=== PATIENT | female | born 1945 | race Caucasian/White ===

== ENCOUNTER 2018-09-01 11:23 | Inpatient (IN) | payer MEDICARE, OTHER ==
[2018-08-31] MEDS: SOD CHLORIDE 0.9% 100 ML, TRANEXAMIC ACID 3,000 MG IRR (06:30)
[2018-09-01] MEDS: GABAPENTIN 300 MG CAP PO ×3 (07:30→20:14)
[2018-09-01] MEDS: SOD CHLORIDE 0.9% 100 ML, TRANEXAMIC ACID 3,000 MG IRR (07:30)
[2018-09-01] MEDS: DEXAMETHASONE 1 MG TAB PO ×2 (07:30→13:21)
[~2018-09-01 11:23] MED LIST: BUPIVACAINE 0.5% (SDV) 30 ML, morphine SULFATE (PF) 8 MG, EPINEPHrine 0.3 MG, KETOROLAC... IRR; CEFAZOLIN 1 GM INJ; DESFLURANE 15 MIN; ROCURONIUM 50 MG INJ
[2018-09-01] MEDS ORDERED: FENTAnyl 50 MCG/ML VIAL (12:47)
[2018-09-01] MEDS ORDERED: PROPOFOL 20 ML (12:47)
[2018-09-01] MEDS ORDERED: MIDAZOLAM 1 MG/ML 2 ML INJ (12:47)
[2018-09-01] MEDS ORDERED: LABETALOL HCL 20MG INJ IV (13:00)
[2018-09-01] MEDS ORDERED: ONDANSETRON 4 MG INJ IV ×2 (13:00→15:30)
[2018-09-01] MEDS ORDERED: MEPERIDINE 25 MG INJ IV (13:00)
[2018-09-01] MEDS ORDERED: hydrALAzine 20 MG INJ IV (13:00)
[2018-09-01] MEDS ORDERED: FENTAnyl 50 MCG/ML VIAL IV ×2 (13:00)
[2018-09-01] MEDS ORDERED: EPHEDrine SULFATE 50 MG/5 ML SYG IV (13:00)
[2018-09-01] MEDS ORDERED: METOCLOPRAMIDE 10 MG INJ IV (13:00)
[2018-09-01] MEDS ORDERED: OXYCODONE/ACETAMINOPHEN (5/325) TAB PO (13:00)
[2018-09-01] MEDS ORDERED: HYDROmorphONE 1 MG/5 ML IV SYRINGE IV ×3 (13:00)
[2018-09-01] MEDS: CEFAZOLIN 2 GM/50 ML (PMX) 50 ML IVPB (14:10)
[2018-09-01] MEDS ORDERED: DEXAMETHASONE 4 MG/ML 5 ML INJ (15:09)
[2018-09-01] MEDS ORDERED: METOCLOPRAMIDE 10 MG INJ (15:09)
[2018-09-01] MEDS ORDERED: SUGAMMADEX SODIUM 200 MG/2 ML VIAL IV (15:09)
[2018-09-01] MEDS ORDERED: KETOROLAC 30 MG INJ (15:09)
[2018-09-01] MEDS ORDERED: ONDANSETRON 4 MG INJ (15:09)
[2018-09-01] MEDS: TRANEXAMIC ACID 1GM/100ML(PMX) 100 ML IVPB ×2 (15:12)
[2018-09-01] MEDS: CA CHLORIDE 10% 10 ML SYRINGE (15:12)
[2018-09-01] MEDS: THROMBIN 5000 UNIT VIAL (15:13)
[2018-09-01] MEDS: POLYMYXIN/BACITRACIN 1L IRRIG (15:14)
[2018-09-01] MEDS: BUPIVACAINE 0.5% (SDV) 30 ML, morphine SULFATE (PF) 8 MG, EPINEPHrine 0.3 MG, KETOROLAC... IRR (15:14)
[2018-09-01] MEDS ORDERED: ZOLPIDEM 5 MG TAB PO (15:30)
[2018-09-01] MEDS ORDERED: NACL 0.9% 3 ML SYG IV (15:30)
[2018-09-01] MEDS ORDERED: oxyCODONE 5 MG TAB PO ×3 (15:30)
[2018-09-01] MEDS ORDERED: CEFAZOLIN 1 GM/50 ML (PMX) 50 ML IVPB (15:30)
[2018-09-01] MEDS ORDERED: DIPHENHYDRAMINE 50 MG INJ IV (15:30)
[2018-09-01] MEDS ORDERED: CARISOPRODOL 350 MG TAB PO (15:30)
[2018-09-01] MEDS ORDERED: HYDROmorphONE 1 MG/ML SYG IV (15:30)
[2018-09-01] MEDS ORDERED: MAGNESIUM HYDROXIDE 30ML CUP PO (15:30)
[2018-09-01] MEDS: DIPHENHYDRAMINE 50 MG INJ IV (16:37)
[2018-09-01] MEDS: LACTATED RINGER'S 1,000 ML IV (16:45)
[2018-09-01] MEDS: ACETAMINOPHEN 1000MG/100ML IV 100 ML IVPB (18:31)
[2018-09-01] MEDS: DEXAMETHASONE 2 MG TAB PO ×2 (18:31→23:35)
[2018-09-01] MEDS: CEFAZOLIN 1 GM/50 ML (PMX) 50 ML IVPB (20:13)
[2018-09-01] MEDS: SENNA/DOCUSATE NA (8.6MG/50MG) TAB PO (20:14)
[2018-09-01] MEDS: SULFASALAZINE (EC) 500 MG TAB PO (20:15)
[2018-09-01] MEDS: ROSUVASTATIN CALCIUM 40 MG TABLET PO (22:48)
[2018-09-02] MEDS: LACTATED RINGER'S 1,000 ML IV ×2 (01:27→03:50)
[2018-09-02] MEDS: ACETAMINOPHEN 1000MG/100ML IV 100 ML IVPB ×2 (01:57→09:04)
[2018-09-02] MEDS: CEFAZOLIN 1 GM/50 ML (PMX) 50 ML IVPB ×2 (03:50→11:34)
[2018-09-02] MEDS: SULFASALAZINE (EC) 500 MG TAB PO ×2 (04:15→09:07)
[2018-09-02] MEDS: PANTOPRAZOLE (EC) 40 MG TAB PO (05:17)
[2018-09-02] MEDS: DEXAMETHASONE 2 MG TAB PO ×2 (05:17→11:34)
[2018-09-02] MEDS: LEVOTHYROXINE 50 MCG TAB PO (06:47)
[2018-09-02] MEDS: SENNA/DOCUSATE NA (8.6MG/50MG) TAB PO (09:00)
[2018-09-02] MEDS ORDERED: NON-FORMULARY/PATIENT OWN MED (Mirabegron (Myrbetriq) 50 MG) PO (09:00)
[2018-09-02] MEDS: FLUOXETINE 20 MG CAP PO (09:04)
[2018-09-02] MEDS: LOSARTAN 50 MG TAB PO (09:05)
[2018-09-02] MEDS: HYDROCHLOROTHIAZIDE 12.5 MG CAP PO (09:07)
[2018-09-02] MEDS: ASPIRIN (EC) 325 MG TAB PO (09:07)
[2018-09-03] MEDS ORDERED: MAGNESIUM HYDROXIDE 30ML CUP PO (21:00)
== END 2018-09-02 12:46 | disposition home or self-care (01) | DRG 502 ==
LOC: REC 11:23 → MS1 16:55
PROC: 0MTL0ZZ Resection of Right Hip Bursa and Ligament, Open Approach (ICD-10-PCS; principal; 2018-09-01 13:00)
DX: M70.61 Trochanteric bursitis, right hip (principal); S76.211A Strain of adductor muscle, fascia and tendon of right thigh, initial encounter; I10 Essential (primary) hypertension; E78.5 Hyperlipidemia, unspecified; E03.9 Hypothyroidism, unspecified; K21.9 Gastro-esophageal reflux disease without esophagitis
CPT/HCPCS: 86999; 97161